=== PATIENT | female | born 1960 | race Caucasian/White ===

== ENCOUNTER 2020-01-19 08:33 | Emergency (ER) | payer OTHER, SELFPAY ==
[2020-01-19 08:55] VITALS: BP 120/71; PULSE 68; RESP 20; TEMP 36.1; O2SAT 99
--- NOTE | 2020-01-19 09:17 | ED.GENADULT ---
HPI - General Adult General Chief complaint: Wound/Laceration Stated complaint: left leg laceration Time Seen by Provider: 01/19/20 09:17 Source: patient and RN notes reviewed Mode of arrival: ambulatory Limitations: no limitations History of Present Illness HPI narrative: 59-year-old female presents with complaints of laceration to left lateral lower thigh, caused by striking leg on a wooden pole (occurred between 6pm/7pm) 15 hours ago. Lucila says she tripped over a vine in her yard and struck leg on a wooden pole, initially continued to work until she noticed blood down her leg. Denies focal weakness, altered sensation, rash, fever or chills, or diarrhea, nausea or vomiting and abdominal pain. Tolerating po intake well. Denies pain, numbness or tingling, or loss of mobility. No foreign body sensation. Tetanus NOT up-to-date, will update today. Denies headaches, weakness, fatigue, or myalgia. Denies chest pain or dyspnea. Denies cough, rhinorrhea, congestion, sore throat. Denies recent traveling. Denies concerns for COVID-19 or exposures been home since [id number] order except for essential household needs and return home. Some parts of this dictation were generated by voice recognition software and may contain typographical and/or grammatical inaccuracies. Related Data Allergies Allergy/AdvReac Type Severity Reaction Status Date / Time minocycline Allergy Unknown Verified 12/18/15 09:50 MINOCYCLINE HCL Allergy Mild Uncoded 01/07/14 13:21 Review of Systems Review of Systems: Narrative: CONSTITUTIONAL: Denies fever, chills, sweats. EYES: Denies visual changes, redness, discharge. ENT: Denies rhinorrhea, congestion, sore throat, otalgia. CARDIOVASCULAR: Denies chest pain, palpitations, edema. RESPIRATORY: Denies dyspnea, wheezing, cough. GASTROINTESTINAL: Denies abdominal pain, nausea, vomiting, or diarrhea. GENITOURINARY: Denies dysuria, hematuria, abnormal discharge. SKIN: Denies rash or itching. Complains of laceration to LT lateral lower thigh. MUSCULOSKELETAL: Denies acute back pain, joint pain, or myalgia. NEUROLOGIC: Denies numbness or focal weakness. PSYCHIATRIC: Denies anxiety or depression. All other systems reviewed are negative, except as documented in HPI and below. [facility] Past Medical History Medical History (Updated 01/25/20 @ 10:23 by JAREN Brasher) Breast cancer History of kidney cancer Postmenopausal Warts, genital removed Surgical History Surgical History (Updated 01/19/20 @ 19:23 by JAREN Brasher) History of dental surgery History of dilation and curettage History of lumpectomy of left breast History of partial nephrectomy Lucila says she can not remember which kidney Family History Family History (Updated 06/17/15 @ 12:50 by DOCTOR UNKNOWN) Grandparent Carcinoma of colon Father Acute myocardial infarction Other Family history of malignant neoplasm Social History Social History (Updated 01/19/20 @ 19:23 by JAREN Brasher) Smoking status: Never smoker Second hand tobacco smoke exposure: No Alcohol intake: current Substance use: never Living arrangements: alone Occupation/Education: retired Gender identity (if verbalized by the patient): Female Comments At time of signature, agree with nurse past medical, surgical, social, and family history. There is no relevant family history pertinent to the presenting complaint. Exam Narrative: Exam Narrative: GENERAL: This is a well-nourished, well-developed patient, in no apparent distress. Lucila very anxious and teary eyed due to the pandemic in the world at this time reassurance given of precautions taken here at this facility and with this provider. HEAD: normocephalic, atraumatic. CARDIOVASCULAR: Regular rate and rhythm without murmurs, gallops, or rubs. RESPIRATORY: Clear to auscultation. Breath sounds equal bilaterally. No wheezes, rales, or rhonchi. GASTROINTESTINAL
[2020-01-19] MEDS: TETANUS,DIPHTHERIA,AC PERTUSSIS ADULT 0.5 ML (ADACEL) IM (10:08)
== END 2020-01-19 11:11 | disposition home or self-care (01) ==
PROVIDERS: Emergency Provider Nurse Practitioner Family; PCP Internal Medicine
DX: S71.112A Laceration without foreign body, left thigh, initial encounter (principal); Z85.3 Personal history of malignant neoplasm of breast; Z85.528 Personal history of other malignant neoplasm of kidney; Z90.5 Acquired absence of kidney; W01.198A Fall on same level from slipping, tripping and stumbling with subsequent striking against other object, initial encounter
CPT/HCPCS: 12002; 90715; 99213; G0463

== ENCOUNTER 2020-10-30 10:29 | Outpatient (CLI) | payer OTHER, SELFPAY ==
--- NOTE | 2020-10-30 10:39 | EST_ITS ---
Patient Info Name: Lucila Monroe Age: 60 years : 1960 Gender: Female Ht: 60 in Wt: 122 lbs BSA: 1.54 m2 HR: 62 bpm Technical Quality: Good Exam Date: 10/30/2020 10:56 AM Exam Location: [facility] Patient Status: Outpatient Admit Date: 10/30/2020 Staff Ordering Physician: Raymond Mo APRN [place] Machine Operator: Leana Smith RDCS Attending Provider: DIXIE RICO DO Referring Physician: Chepe BEAVERS; Exercise Technologist: Concepción Gray RDCS Exam Type: CA stress echo Study Info Indications - chest pain Treadmill exercise stress echocardiogram is performed. Summary 1. 1. Abnormal Donald exercise stress test for ischemic ST changes by ECG criteria. 2. 2. Good functional capacity, achieving 7 METs of workload. 3. 3. Appropriate HR response to exercise. 4. 4. Appropriate HR recovery at 1 minute post exercise. 5. 5. Negative stress echocardiogram for ischemia by wall motion analysis. 6. 6. Patient informed of the above results. Stress Echo Findings Left Ventricle Appropriate increase in LV endocardial thickening with systole. Appropriate augmentation of contractility with systole. No wall motion abnormality. Left Ventricle Normal LV systolic function, no wall motion abnormality. Protocol: Donald Stress ECG Details Stage: REST Duration (min): 8 min : 9 sec Speed (mph): 0.0 Grade (%): 0 HR (bpm): 68 SBP (mmHg): 104 DBP (mmHg): 58 METS: --- Stage: REST Duration (min): 21 min : 28 sec Speed (mph): 0.0 Grade (%): 0 HR (bpm): 75 SBP (mmHg): 104 DBP (mmHg): 58 METS: --- Stage: STAGE 1 Duration (min): 1 min : 0 sec Speed (mph): 1.7 Grade (%): 10 HR (bpm): 107 SBP (mmHg): 104 DBP (mmHg): 58 METS: --- Stage: STAGE 1 Duration (min): 2 min : 0 sec Speed (mph): 1.7 Grade (%): 10 HR (bpm): 121 SBP (mmHg): 104 DBP (mmHg): 58 METS: --- Stage: STAGE 1 Duration (min): 3 min : 0 sec Speed (mph): 1.7 Grade (%): 10 HR (bpm): 121 SBP (mmHg): 146 DBP (mmHg): 74 METS: --- Stage: STAGE 2 Duration (min): 1 min : 0 sec Speed (mph): 2.5 Grade (%): 12 HR (bpm): 134 SBP (mmHg): 146 DBP (mmHg): 74 METS: --- Stage: STAGE 2 Duration (min): 2 min : 0 sec Speed (mph): 2.5 Grade (%): 12 HR (bpm): 150 SBP (mmHg): 140 DBP (mmHg): 71 METS: --- Stage: STAGE 2 Duration (min): 3 min : 0 sec Speed (mph): 2.5 Grade (%): 12 HR (bpm): 150 SBP (mmHg): 140 DBP (mmHg): 71 METS: --- Stage: STAGE 3 Duration (min): 0 min : 1 sec Speed (mph): 0.0 Grade (%): 0 HR (bpm): 150 SBP (mmHg): 140 DBP (mmHg): 71 METS: --- Stage: RECOVERY Duration (min): 0 min : 58 sec Speed (mph): 0.0 Grade (%): 0 HR (bpm): 96 SBP (mmHg): 124 DBP (mmHg): 67 METS: --- Stage: RECOVERY Duration (min): 1 min : 58 sec Speed (mph): 0.0 Grade (%): 0 HR (bpm):
== END 2020-10-30 10:30 | disposition home or self-care (01) ==
LOC: ANHCARD 10:31
PROVIDERS: PCP Internal Medicine; Visit Provider Nurse Practitioner
DX: R07.9 Chest pain, unspecified (principal)
CPT/HCPCS: 93351

== ENCOUNTER 2021-05-14 02:33 | Day surgery (SDC) | payer OTHER, SELFPAY ==
[2021-05-04 14:50] VITALS: BMI 23.4
--- NOTE | 2021-05-13 21:05 | PM.HPGS ---
History of Present Illness History of Present Illness Consent: Risks, benefits, and alternatives have been discussed and questions answered. Patient agrees to proceed with procedure. Chief complaint: neoplasm, family hx of colon ca Narrative: Lucila Monroe is a 60 year old female referred forinvestigation of persistent reflux symptoms, and family history of colon Canceer Review of Systems Review of Systems: All systems reviewed & are unremarkable except as noted in HPI and below PMFSH Past Medical History Medical History Breast cancer History of kidney cancer Postmenopausal Warts, genital removed Surgical History Surgical History History of dental surgery History of dilation and curettage History of lumpectomy of left breast History of partial nephrectomy Lucila says she can not remember which kidney Family History Family History Grandparent Carcinoma of colon Father Acute myocardial infarction Other Family history of malignant neoplasm Social History Social History Second hand tobacco smoke exposure: No Alcohol intake: current Substance use: never Substance use type: does not use Gender identity (if verbalized by the patient): Female Meds Home Medications and Allergies Home Medications Medication Instructions Recorded Confirmed Type calcium carbonate 600 mg calcium 600 mg PO BID 06/24/20 05/04/21 History (1,500 mg) tablet cholecalciferol (vitamin D3) 50 50 mcg PO DAILY 06/24/20 05/04/21 History mcg (2,000 unit) capsule anastrozole 1 mg tablet 1 mg PO DAILY 07/01/20 05/04/21 History Allergies Allergy/AdvReac Type Severity Reaction Status Date / Time minocycline Allergy Unknown dizzy Verified 05/14/21 08:06 Exam Const: General: alert Orientation/consciousness: patient oriented x3 Resp: Auscultation: clear to auscultation bilaterally Cardio: Rhythm: regular rhythm GI: GI Palp: Yes Soft to palpation and No Tenderness to palpation present (GI) Neuro: General: patient oriented x3 Assessment and Plan Assessment and plan (1) Screening for colon cancer: Code(s): Z12.11 - Encounter for screening for malignant neoplasm of colon Status: Acute Assessment and Plan: Colonoscopy with possible biopsy or polypectomy or cautery or injection of substances.
[2021-05-14 08:07] VITALS: BP 109/54; PULSE 73; RESP 16; TEMP 36.2; O2SAT 97; BMI 23.1
[2021-05-14] MEDS: LACTATED RINGERS 1,000 ML 150 ML IV CONT (08:22)
--- NOTE | 2021-05-14 09:03 | WPDANESEPPF ---
Anes - Initial Pre Proc Eval Procedure: Operation Date: 05/14/21 09:00 Proposed Procedures p Screening Colonoscopy - Junaid Rodriguez MD Date/Time: 05/14/21 09:03 Surgeon: Junaid Rodriguez MD Pre Op Diagnosis: neoplasm, family hx of colon ca Patient Data Age: 60 Gender: F Height: 1.52 m Weight: 53.6 kg Last Vital Signs Temp 97.2 F L 05/14/21 08:07 Pulse 73 05/14/21 08:07 Resp 16 05/14/21 08:07 BP 109/54 L 05/14/21 08:07 Pulse Ox 97 05/14/21 08:07 Allergies Allergy/AdvReac Type Severity Reaction Status Date / Time minocycline Allergy Unknown dizzy Verified 05/14/21 08:06 Home Medications Medication Instructions Recorded Confirmed Type calcium carbonate 600 mg calcium 600 mg PO BID 06/24/20 05/14/21 History (1,500 mg) tablet cholecalciferol (vitamin D3) 50 50 mcg PO DAILY 06/24/20 05/14/21 History mcg (2,000 unit) capsule anastrozole 1 mg tablet 1 mg PO DAILY 07/01/20 05/14/21 History Patient hx anesthesia problems: none Family hx anesthesia problems: none PMFSH Past Medical History Medical History Breast cancer History of kidney cancer Postmenopausal Warts, genital removed Surgical History Surgical History History of dental surgery History of dilation and curettage History of lumpectomy of left breast History of partial nephrectomy Lucila says she can not remember which kidney Family History Family History Grandparent Carcinoma of colon Father Acute myocardial infarction Other Family history of malignant neoplasm Social History Social History Second hand tobacco smoke exposure: No Alcohol intake: current Substance use: never Substance use type: does not use Gender identity (if verbalized by the patient): Female Anes - Eval Final PreProcedure Day of Procedure 05/14/21 09:03 Patient weight: normal Heart: regular rate and rhythm Lungs: clear to auscultation Airway: Mallampati scale class II Neurological: alert and oriented Last oral intake: >/= 8 hours ASA classification: III Emergent: no Anesthetic plan: proceed Anesthesia type and monitoring: general GIVS and standard monitoring Informed Consent: The patient's anesthetic plan and its attendant risks and benefits were discussed with the patient/family/POA. Questions were solicited and answers provided to the satisfaction of the patient/family/POA.
[2021-05-14 09:20] VITALS: BP 86/45; PULSE 62; RESP 18; O2SAT 99
[2021-05-14 09:30] VITALS: BP 94/47; PULSE 59; RESP 16; O2SAT 99
[2021-05-14 09:40] VITALS: BP 98/54; PULSE 56; RESP 15; O2SAT 98
== END 2021-05-14 09:53 | disposition home or self-care (01) ==
PROVIDERS: PCP Internal Medicine; Visit Provider Internal Medicine Gastroenterology
PROC: 0DJD8ZZ Inspection of Lower Intestinal Tract, Via Natural or Artificial Opening Endoscopic (ICD-10-PCS; CPT 45378; principal; 2021-05-14 09:00)
DX: Z12.11 Encounter for screening for malignant neoplasm of colon (principal); Z80.0 Family history of malignant neoplasm of digestive organs; Z85.3 Personal history of malignant neoplasm of breast; Z85.528 Personal history of other malignant neoplasm of kidney
CPT/HCPCS: 45378; J2001; J2704; J7120

== ENCOUNTER 2022-09-27 18:08 | Outpatient (CLI) | payer OTHER, SELFPAY ==
--- NOTE | ~2022-09-27 | XR_ITS ---
EXAMINATION: XR chest 2V DATE: 09/27/2022 18:30 INDICATION: Cough since COVID 19 infection TECHNIQUE: Frontal and lateral views of the chest are obtained COMPARISON: 11/18/2016 FINDINGS: There is minimal opacity of the right middle lobe. No pleural effusion or pneumothorax. The cardiomediastinal silhouette is normal. There is mild thoracic spondylosis. IMPRESSION: 1. Minimal airspace opacity of the right middle lobe which could reflect sequela of prior COVID 19 in fection. Consider followup with low-dose CT if symptoms persist after appropriate therapy or if the p atient is at high risk for malignancy. Reviewed, dictated and finalized at location B. [facility] IMPRESSION: 1. Minimal airspace opacity of the right middle lobe which could reflect sequel a of prior COVID 19 infection. Consider followup with low-dose CT if symptoms p ersist after appropriate therapy or if the patient is at high risk for malignan cy.
== END 2022-09-27 18:09 | disposition home or self-care (01) ==
PROVIDERS: PCP Internal Medicine; Visit Provider Internal Medicine
DX: R05.9 Cough, unspecified (principal)
CPT/HCPCS: 71046

== ENCOUNTER 2022-12-30 08:31 | Outpatient (CLI) | payer OTHER, SELFPAY ==
--- NOTE | ~2022-12-30 | XR_ITS ---
EXAMINATION: XR lg joint inject/asp w image DATE: 12/30/2022 09:26 INDICATION: Frozen left shoulder. TECHNIQUE: A time-out was performed to verify the patient's name, date of , and procedure to b e performed. The procedure including the risks, benefits, and alternatives was discussed with the pat ient. Risks discussed included bleeding and infection. The patient understood the risks and agreed to proceed. The skin overlying the left glenohumeral joint was prepped and draped in usual sterile fas hion. Anesthetic was administered with 1% lidocaine subcutaneously. A 22 G needle was advanced unde r fluoroscopic guidance into the joint. Subsequently, injectate consisting of 4 mL 1% lidocaine and 1 mL 80 mg/mL Depo-Medrol was instilled. The needle was removed and the entry site was cleaned and d ressed. There were no immediate complications. Fluoroscopy exposure time was 0.1 minutes. The total number of images was 1. FINDINGS: Real-time fluoroscopy demonstrates the needle in the left glenohumeral joint. Patient's karyn n prior to procedure:11/25. Patient's pain following the procedure: 09/27. IMPRESSION: 1. Fluoroscopy guided left glenohumeral joint injection of local anesthetic and steroid with decrease in the patient's presenting pain. Reviewed, dictated and finalized at location A.
== END 2022-12-30 08:32 | disposition home or self-care (01) ==
PROVIDERS: PCP Internal Medicine; Visit Provider Orthopaedic Surgery
DX: M75.02 Adhesive capsulitis of left shoulder (principal)
CPT/HCPCS: 20610; 77002; J1040